=== PATIENT | female | born 1935 | race Caucasian/White ===

== ENCOUNTER 2018-12-03 13:20 | Observation (INO) ==
--- NOTE | 2018-12-03 14:01 | Emergency Department Note ---
Disposition Clinical Impression: Osteomyelitis Qualifiers: Osteomyelitis type: unspecified type Osteomyelitis location: other site Qualified Code(s): M86.9 - Osteomyelitis, unspecified Disposition: Admitted As Inpatient Forms: ED Satisfaction Letter, Work/School Release Time of Disposition: 15:24 General Adult HPI - General Chief complaint: ED General Medical Stated complaint: osteomyelitis Time Seen by Provider: 12/03/18 13:26 Source: patient, family Mode of arrival: ambulatory Limitations: no limitations Nursing Notes Reviewed: Yes Vital Signs Reviewed: Yes - History of Present Illness HPI Narrative: I have re-performed and reviewed the history documented by the medical student, and I confirm its accuracy except as noted below Pt states her osteomyelitis was discovered after she had a tooth removed in April and continued to have left sided jaw pain. She has been taking Clindamycin orally for the past several months which have not been helping with her osteomylitis. She had a jaw XR done at [facility] on but not any advanced imaging. She denies abdominal pain, vomiting and diarrhea from her long course of antibiotics and besides having to puree her food due to the jaew pain she has no other complaints at this time. Pain Scale: 0 - Related Data Allergies Allergy/AdvReac Type Severity Reaction Status Date / Time Penicillins Allergy Hives Verified 12/03/18 13:24 All systems ED: reviewed and negative except as stated. Review of Systems: As Per HPI Constitutional: Denies: fever, chills ENT ED: Reports: other (jaw pain) Cardiovascular: Denies: chest pain, palpitations, dyspnea on exertion Respiratory: Denies: cough, dyspnea, wheezes Gastrointestinal: Denies: abdominal pain, nausea, vomiting, diarrhea Genitourinary: Denies: dysuria, hematuria Musculoskeletal: Denies: back pain, neck pain Neurological: Reports: headache Endocrine: Denies: fatigue Past Medical History - Past Medical History Attestation: Yes The following information was validated with the patient. Source: patient Medical history: Reports: aortic aneurysm, arthritis, cancer, COPD, diabetes, glaucoma, hyperlipidemia Psychiatric history: Reports: anxiety - Social History Smoking Status: Never smoker Smokeless Tobacco Status: No Alcohol use: Reports: none Drug use: Reports: none Physical Exam - General Limitations: no limitations General appearance: alert, in no apparent distress - Head Head exam: atraumatic, normocephalic, other (left sided jaw pain to palpation) - Eye Eye exam: Present: normal appearance, EOMI - Chest Chest inspection: Present: normal inspection. Absent: tenderness, rash - Respiratory Respiratory exam: Present: normal lung sounds bilaterally. Absent: wheezes - Cardiovascular Cardiovascular exam: Present: regular rate, normal rhythm - Abdominal Exam Abdominal exam: Present: soft, Non-Tender. Absent: distention, guarding, kleber ound, rigidity - Extremities Exam Extremities exam: Present: normal inspection. Absent: tenderness, pedal edema, calf tenderness - Neurological Exam Neurological exam: Present: alert, oriented X3 - Psychiatric Psychiatric exam: Present: normal affect, normal mood - Skin Skin exam: Present: warm, dry, intact Course Vital Signs Temperature 98.0 F 12/03/18 13:22 Pulse Rate 75 12/03/18 13:22 Respiratory Rate 18 12/03/18 13:22 Blood Pressure 173/72 12/03/18 13:22 O2 Sat by Pulse Oximetry 97 12/03/18 13:22 Temperature 98.0 F 12/03/18 13:39 Pulse Rate 75 12/03/18 13:39 Respiratory Rate 18 12/03/18 13:39 Blood Pressure 173/72 12/03/18 13:39 O2 Sat by Pulse Oximetry 97 12/03/18 13:39 Oxygen Delivery Oxygen Delivery Room Air Medical Decision Making - MDM Narrative Medical decision making narrative: Patient presents after being called by Allegra Connelly, nurse practitioner for infectious disease, who told her to come to the emergency department to expedite her follow-up with infectious disease. I spoke with Dr. Pinto from infectious disease who recommends obtaining basic labs, blood cultures, ESR, CRP and obtaining CT imaging of the patient's jaw. He recommends starting her on vancomycin and ertapenem to help treat her osteomyelitis and we will likely consult ENT for a second biopsy of the patient's jaw as her records are all in [place]. Disposition will be admission for IV antibiotics and likely PICC line pending patient's lab results. And has no complaints at this time but is requesting a meal and a meal tray will be ordered for her in the emergency depa rtment. 1524 - patient's labs have returned with an elevated ESR and other labs are within normal limits. Patient is pending the CAT scan but she has been accepted by the admitting hospitalist Dr. Phillips for treatment of her osteomyelitis. - Medical Records Medical records reviewed: Yes I reviewed the patient's medical records. - Lab Data Lab results reviewed: Yes I reviewed the patient's lab results. Result diagrams: 12/03/18 14:19 12/03/18 14:19 Lab Results 12/03/18 12/03/18 12/03/18 Range/Units 14:19 14:19 14:19 WBC 4.8 (4.3-11.1) K/mcL RBC 2.89 L (3.82-4.97) M/mcL Hgb 9.5 L (11.5-15.4) g/dL Hct 29.6 L (35.3-44.9) % MCV 102.4 H (83.0-100.0) fL MCH 32.9 (28.0-33.3) pg MCHC 32.1 (31.6-35.5) g/dL RDW 15.3 H (11.5-14.5) % Plt Count 283 (140-400) K/mcL MPV 9.3 L (9.4-12.4) fL Immature Gran % 0.2 (0-4) % Seg Neutrophils % 48.9 % Lymphocytes % 34.2 % Monocytes % 13.8 % Eosinophils % 2.1 % Basophils % 0.8 % Neutrophils # 2.4 (1.6-8.9) K/mcL Lymphocytes # 1.6 (0.6-4.6) K/mcL Monocytes # 0.7 (0.0-1.3) K/mcL Eosinophils # 0.1 (0.0-0.6) K/mcL Basophils # 0.0 (0.0-0.2) K/mcL ESR 41 H (0-15) mm/hr Sodium 136 (136-145) mEq/L Potassium 4.3 (3.5-5.1) mEq/L Chloride 102 (98-107) mEq/L Carbon Dioxide 26 (23-29) mEq/L BUN 21 (8-23) mg/dL Creatinine 0.95 (0.60-1.20) mg/dL Est GFR ( Amer) > 60 (> 60) Est GFR (Non-Af Amer) 56 L (> 60) BUN/Creatinine Ratio 22 (6-26) Glucose 109 H (70-105) mg/dL Calculated Osmolality 286 (280-300) Calcium 9.7 (8.6-10.3) mg/dL C-Reactive Protein < 5 (Less than 10) mg/L - Radiology Data Radiology results reviewed: Yes I reviewed the patient's radiology results.
[2018-12-03] MEDS ORDERED: Isovue-370 500 ML BOTTLE IVP ONE (14:11)
--- NOTE | 2018-12-03 14:18 | Emergency Department Note ---
Disposition Clinical Impression: Osteomyelitis Qualifiers: Osteomyelitis type: unspecified type Osteomyelitis location: other site Qualified Code(s): M86.9 - Osteomyelitis, unspecified Disposition: Admitted As Inpatient Time of Disposition: 16:00 General Adult HPI - General Chief complaint: ED General Medical Stated complaint: osteomyelitis Time Seen by Provider: 12/03/18 13:26 Source: patient, family Mode of arrival: ambulatory Limitations: no limitations Nursing Notes Reviewed: Yes Vital Signs Reviewed: Yes - History of Present Illness HPI Narrative: Mrs. Castellon is a 83yo female with a hx of AAA s/p repair ~2014, DM and COPD that presents with documented osteomyelitis. Patient was originally diagnosed in April with osteomyelitis in [place], where the patient resides for part of the year. Patient started on Clindamycin 150mg at that time which has since been increased to 300mg. Patient went to [facility] on where she had imaging and lab work confirming osteomyelitis, but it was decided that the patient was not a surgical candidate and infectious disease follow-up was recommended. Patient spoke to BAKERY DECORATOR from [facility] who recommended patient come to the ER to expedite the process of being seen. Patient has no specific complaints today and pain is controlled with home oxycodone rx. She denies fever or trouble swallowing. Pain Scale: 0 - Related Data Home Medications Medication Instructions Recorded Confirmed Atorvastatin [Lipitor] 40 mg PO DAILY 12/03/18 12/03/18 Escitalopram [Lexapro] 10 mg PO DAILY 12/03/18 12/03/18 Fluticasone Propionate Nasal 50 mcg NS DAILY PRN 12/03/18 12/03/18 [Flonase] Fluticasone/Umeclidin/Vilanter 1 puff IH DAILY 12/03/18 12/03/18 [Trelegy Ellipta 100-62.5-25] HYDROcodone/Acet 7.5/325 mg [[place] 1 tab PO BID PRN 12/03/18 12/03/18 7.5-325 mg] Losartan Potassium 50 mg PO DAILY 12/03/18 12/03/18 Oxybutynin [Ditropan] 5 mg PO DAILY 12/03/18 12/03/18 Pioglitazone HCl 30 mg PO DAILY 12/03/18 12/03/18 Ranitidine HCl [Acid Resources Representative] 150 mg PO HS 12/03/18 12/03/18 Ropinirole HCl [Requip] 0.5 mg PO BID 12/03/18 12/03/18 Allergies Allergy/AdvReac Type Severity Reaction Status Date / Time Penicillins Allergy Hives Verified 12/03/18 13:24 Constitutional: Denies: fever, chills Cardiovascular: Denies: chest pain, palpitations Respiratory: Denies: cough, dyspnea Gastrointestinal: Denies: abdominal pain, nausea, vomiting, diarrhea Genitourinary: Denies: urgency, dysuria Musculoskeletal: Reports: other (Jaw pain) Neurological: Denies: headache Past Medical History - Past Medical History Medical history: Reports: aortic aneurysm, arthritis, cancer, COPD, diabetes, glaucoma, hyperlipidemia Psychiatric history: Reports: anxiety - Social History Smoking Status: Never smoker Smokeless Tobacco Status: No Alcohol use: Reports: none Drug use: Reports: none Physical Exam - General Limitations: no limitations General appearance: alert, in no apparent distress - Head Head exam: atraumatic, normocephalic - Neck Neck exam: Present: trachea midline. Absent: lymphadenopathy - Respiratory Respiratory exam: Absent: wheezes, stridor - Cardiovascular Cardiovascular exam: Present: regular rate, normal rhythm - Abdominal Exam Abdominal exam: Present: soft, Non-Tender Course Vital Signs Temperature 98.0 F 12/03/18 13:22 Pulse Rate 75 12/03/18 13:22 Respiratory Rate 18 12/03/18 13:22 Blood Pressure 173/72 12/03/18 13:22 O2 Sat by Pulse Oximetry 97 12/03/18 13:22 Temperature 98.0 F 12/03/18 13:39 Pulse Rate 75 12/03/18 13:39 Respiratory Rate 18 12/03/18 13:39 Blood Pressure 173/72 12/03/18 13:39 O2 Sat by Pulse Oximetry 97 12/03/18 13:39 Oxygen Delivery Oxygen Delivery Room Air Medical Decision Making - MDM Narrative Medical decision making narrative: Patient has documented osteomyelitis. Spoke with Dawna ID that recommended CT scan along with basic lab work. Patient will begin course of vancomycin and ertapenem with plans to ID in the near future. - Differential Diagnosis Osteomyelitis - Lab Data Result diagrams: 12/03/18 14:19 12/03/18 14:19 Lab Results 12/03/18 12/03/18 12/03/18 Range/Units 14:19 14:19 14:19 WBC 4.8 (4.3-11.1) K/mcL RBC 2.89 L (3.82-4.97) M/mcL Hgb 9.5 L (11.5-15.4) g/dL Hct 29.6 L (35.3-44.9) % MCV 102.4 H (83.0-100.0) fL MCH 32.9 (28.0-33.3) pg MCHC 32.1 (31.6-35.5) g/dL RDW 15.3 H (11.5-14.5) % Plt Count 283 (140-400) K/mcL MPV 9.3 L (9.4-12.4) fL Immature Gran % 0.2 (0-4) % Seg Neutrophils % 48.9 % Lymphocytes % 34.2 % Monocytes % 13.8 % Eosinophils % 2.1 % Basophils % 0.8 % Neutrophils # 2.4 (1.6-8.9) K/mcL Lymphocytes # 1.6 (0.6-4.6) K/mcL Monocytes # 0.7 (0.0-1.3) K/mcL Eosinophils # 0.1 (0.0-0.6) K/mcL Basophils # 0.0 (0.0-0.2) K/mcL ESR 41 H (0-15) mm/hr Sodium 136 (136-145) mEq/L Potassium 4.3 (3.5-5.1) mEq/L Chloride 102 (98-107) mEq/L Carbon Dioxide 26 (23-29) mEq/L BUN 21 (8-23) mg/dL Creatinine 0.95 (0.60-1.20) mg/dL Est GFR ( Amer) > 60 (> 60) Est GFR (Non-Af Amer) 56 L (> 60) BUN/Creatinine Ratio 22 (6-26) Glucose 109 H (70-105) mg/dL Calculated Osmolality 286 (280-300) Calcium 9.7 (8.6-10.3) mg/dL C-Reactive Protein < 5 (Less than 10) mg/L
--- NOTE | 2018-12-03 14:21 | Emergency Department Note ---
Disposition Clinical Impression: Osteomyelitis Qualifiers: Osteomyelitis type: unspecified type Osteomyelitis location: other site Qualified Code(s): M86.9 - Osteomyelitis, unspecified Disposition: Admitted As Inpatient Time of Disposition: 16:00 General Adult HPI - General Chief complaint: ED General Medical Stated complaint: osteomyelitis Time Seen by Provider: 12/03/18 13:26 Source: patient, family Mode of arrival: ambulatory Limitations: no limitations Nursing Notes Reviewed: Yes Vital Signs Reviewed: Yes - History of Present Illness Pain Scale: 0 - Related Data Home Medications Medication Instructions Recorded Confirmed Atorvastatin [Lipitor] 40 mg PO DAILY 12/03/18 12/03/18 Escitalopram [Lexapro] 10 mg PO DAILY 12/03/18 12/03/18 Fluticasone Propionate Nasal 50 mcg NS DAILY PRN 12/03/18 12/03/18 [Flonase] Fluticasone/Umeclidin/Vilanter 1 puff IH DAILY 12/03/18 12/03/18 [Trelegy Ellipta 100-62.5-25] HYDROcodone/Acet 7.5/325 mg [[place] 1 tab PO BID PRN 12/03/18 12/03/18 7.5-325 mg] Losartan Potassium 50 mg PO DAILY 12/03/18 12/03/18 Oxybutynin [Ditropan] 5 mg PO DAILY 12/03/18 12/03/18 Pioglitazone HCl 30 mg PO DAILY 12/03/18 12/03/18 Ranitidine HCl [Acid Black Studies Professor] 150 mg PO HS 12/03/18 12/03/18 Ropinirole HCl [Requip] 0.5 mg PO BID 12/03/18 12/03/18 Allergies Allergy/AdvReac Type Severity Reaction Status Date / Time Penicillins Allergy Hives Verified 12/03/18 13:24 Past Medical History - Past Medical History Medical history: Reports: aortic aneurysm, arthritis, cancer, COPD, diabetes, glaucoma, hyperlipidemia Psychiatric history: Reports: anxiety - Social History Smoking Status: Never smoker Smokeless Tobacco Status: No Alcohol use: Reports: none Drug use: Reports: none Physical Exam - General Limitations: no limitations General appearance: alert, in no apparent distress Course Vital Signs Temperature 98.0 F 12/03/18 13:22 Pulse Rate 75 12/03/18 13:22 Respiratory Rate 18 12/03/18 13:22 Blood Pressure 173/72 12/03/18 13:22 O2 Sat by Pulse Oximetry 97 12/03/18 13:22 Temperature 98.0 F 12/03/18 13:39 Pulse Rate 75 12/03/18 13:39 Respiratory Rate 18 12/03/18 13:39 Blood Pressure 173/72 12/03/18 13:39 O2 Sat by Pulse Oximetry 97 12/03/18 13:39 Oxygen Delivery Oxygen Delivery Room Air Medical Decision Making - Lab Data Result diagrams: 12/03/18 14:19 12/03/18 14:19 Lab Results 12/03/18 12/03/18 12/03/18 Range/Units 14:19 14:19 14:19 WBC 4.8 (4.3-11.1) K/mcL RBC 2.89 L (3.82-4.97) M/mcL Hgb 9.5 L (11.5-15.4) g/dL Hct 29.6 L (35.3-44.9) % MCV 102.4 H (83.0-100.0) fL MCH 32.9 (28.0-33.3) pg MCHC 32.1 (31.6-35.5) g/dL RDW 15.3 H (11.5-14.5) % Plt Count 283 (140-400) K/mcL MPV 9.3 L (9.4-12.4) fL Immature Gran % 0.2 (0-4) % Seg Neutrophils % 48.9 % Lymphocytes % 34.2 % Monocytes % 13.8 % Eosinophils % 2.1 % Basophils % 0.8 % Neutrophils # 2.4 (1.6-8.9) K/mcL Lymphocytes # 1.6 (0.6-4.6) K/mcL Monocytes # 0.7 (0.0-1.3) K/mcL Eosinophils # 0.1 (0.0-0.6) K/mcL Basophils # 0.0 (0.0-0.2) K/mcL ESR 41 H (0-15) mm/hr Sodium 136 (136-145) mEq/L Potassium 4.3 (3.5-5.1) mEq/L Chloride 102 (98-107) mEq/L Carbon Dioxide 26 (23-29) mEq/L BUN 21 (8-23) mg/dL Creatinine 0.95 (0.60-1.20) mg/dL Est GFR ( Amer) > 60 (> 60) Est GFR (Non-Af Amer) 56 L (> 60) BUN/Creatinine Ratio 22 (6-26) Glucose 109 H (70-105) mg/dL Calculated Osmolality 286 (280-300) Calcium 9.7 (8.6-10.3) mg/dL C-Reactive Protein < 5 (Less than 10) mg/L Attestation Statement - Attestation Attestation: I examined this patient and my medical decision-making was reviewed with the Resident Physician. I agree with the documented findings, disposition and treatment plan as described except to the extent set forth below. Patient presents to the ED with a chief complaint of osteomyelitis to her jaw. Patient has a history of the same. His been on multiple antibiotics since April. [facility] was discussing replacing her jaw. They wanted her to see an infectious disease specialist. She was referred to our infectious disease who recommended her to come to the emergency department to be admitted. On exam she is awake and alert in no distress. Do not appreciate any swelling of her face. Mild tenderness over the left mandible. Plan. Labs imaging and will discuss with infectious disease. Labs reviewed. Patient was given ertapenem and vancomycin. Admitted to [facility]. Face CT 12/03/18 14:11 IMPRESSION: Irregular mixed sclerosis and osteolysis of the bilateral mandibular bodies and crossing the midline consistent with the clinical history of known osteomyelitis. Osteonecrosis could also have this appearance. Irregular 12 x 17 x 13 mm left submandibular soft tissue mass extending from the inferior margin of the left mandibular body to just deep to the skin surface. This is nonspecific and could represent enlarged lymph node however a neoplastic process could also have this appearance. D/ / 12/03/2018 16:14:56 Tony Gutierrez MD / sabrina Interpreting Provider: Tony Gutierrez MD
[2018-12-03 14:45] LABS: Basophils % 0.8 %; Eosinophils # 0.1 K/mcL (0.0-0.6); Eosinophils % 2.1 %; Hematocrit 29.6 % (35.3-44.9); Hemoglobin 9.5 g/dL (11.5-15.4); Immature Granulocytes % 0.2 % (0-4); Lymphocytes # 1.6 K/mcL (0.6-4.6); Lymphocytes % 34.2 %; Mean Corpuscular HGB Conc 32.1 g/dL (31.6-35.5); Mean Corpuscular Hemoglobin 32.9 pg (28.0-33.3); Mean Corpuscular Volume 102.4 fL (83.0-100.0); Mean Platelet Volume 9.3 fL (9.4-12.4); Monocytes # 0.7 K/mcL (0.0-1.3); Monocytes % 13.8 %; Neutrophils # 2.4 K/mcL (1.6-8.9); Platelet Count 283 K/mcL (140-400); Red Blood Count 2.89 M/mcL (3.82-4.97); Red Cell Distribution Width 15.3 % (11.5-14.5); Segmented Neutrophils % 48.9 %; White Blood Count 4.8 K/mcL (4.3-11.1)
[2018-12-03 15:04] LABS: BUN/Creatinine Ratio 22 (6-26); Blood Urea Nitrogen 21 mg/dL (8-23); C-Reactive Protein < 5 mg/L (Less than 10); Calcium 9.7 mg/dL (8.6-10.3); Carbon Dioxide 26 mEq/L (23-29); Chloride 102 mEq/L (98-107); Glucose 109 mg/dL (70-105); Osmolality,Calculated 286 (280-300); Potassium 4.3 mEq/L (3.5-5.1); Sodium 136 mEq/L (136-145); eGFR For African Americans > 60 (> 60); eGFR For Non-African Americans 56 (> 60)
[2018-12-03] MEDS ORDERED: Naloxone 0.4 MG/ML INJ IVP PRN (15:24)
[2018-12-03] MEDS ORDERED: Ondansetron 4 MG/2 ML VIAL IVP PRN (15:24)
[2018-12-03] MEDS ORDERED: *HR* Labetalol 20 MG/4 ML SYRINGE IVP PRN (15:53)
[2018-12-03] MEDS ORDERED: Fluticasone Propionate Nasal 50 MCG/SPRAY BOTTLE NS PRN (15:53)
[2018-12-03] MEDS ORDERED: D5% in Water 1,000 ML IVC PRN (15:54)
[2018-12-03] MEDS ORDERED: Dextrose Gel 15 GM/37.5 ML TUBE PO PRN ×2 (15:54)
[2018-12-03] MEDS ORDERED: *HR* Dextrose 50 % in Water (Syg) 50 ML SYRINGE IVP PRN (15:54)
--- NOTE | 2018-12-03 16:07 | Internal Med History&Physical ---
Date of Encounter: 12/03/18 Time of Encounter: 15:30 Internal Medicine - H&P: HPI Chief complaint: L jaw osteomyelitis Admitted From: Home History of present illness: Ms. Castellon is a 83 year old female with history of COPD, diabetes, status post AAA repair, who presented to the ED for L jaw osteomyelitis. Her history goes back to 09/2017 when she had a tooth pulled out on the left side. Since then, she developed gradual swelling and pain over the left jaw and was diagnosed with L jaw osteomyelitis in 04/2018 in [place]. Since then, she had been on multiple IV/PO abx and also had open exploration of the left mandible in 08/2018. Path at the time confirmed osteomyelitis and she was again placed on PO clindamycin. Since then, she moved up to [place] and was first seen by ENT surgeon in [place] and had a referral to OMF surgeon in [facility] this . She states that [facility] O[facility] surgeon told her that there was no role of any surgical intervention and instead asked her to follow up with infectious disease physician. When she called the ID office on Wednesday, she was told that her earliest appointment was in 3 weeks time hence she decided to come to the ED for further evaluation and treatment. Other than nagging left jaw pain, she denies any fever/chills, nausea/vomiting, chest pain, shows of breath, palpitation, or sputum production. Denies any melena, hematochezia, hematemesis, or hemoptysis. No other GI/ symptoms. In the ED, she was afebrile and hemodynamically stable. Labwork showed hemoglobin of 9.5, ESR 41, and normal CRP. CT facial bones were pending at the time of my interview. Patient will be admitted for further management of left jaw osteomyelitis. Past Med Surg Social Fam HX - Past Medical History Medical history: aortic aneurysm, arthritis, cancer, COPD, diabetes, glaucoma, hyperlipidemia Additional medical history: RLS. Aneurysm L Groin. Heart Cath (June 2018). Breast CA Psychiatric history: anxiety - Past Surgical History Additional surgical history: AAA repair. R Breast Surgery. R Knee Surgery - Social History Smoking Status: Never smoker Smokeless Tobacco Status: No Alcohol use: none Drug use: none - Additional Family History Additional family history: No family history of premature CAD Internal Medicine - H&P: Meds Atorvastatin [Lipitor] 40 mg PO DAILY 12/03/18 [History] Escitalopram [Lexapro] 10 mg PO DAILY 12/03/18 [History] Fluticasone Propionate Nasal [Flonase] 50 mcg NS DAILY PRN 12/03/18 [History] Fluticasone/Umeclidin/Vilanter [Trelegy Ellipta 100-62.5-25] 1 puff IH DAILY 12/03/18 [History] HYDROcodone/Acet 7.5/325 mg [[place] 7.5-325 mg] 1 tab PO BID PRN 12/03/18 [History] Losartan Potassium 50 mg PO DAILY 12/03/18 [History] Oxybutynin [Ditropan] 5 mg PO DAILY 12/03/18 [History] Pioglitazone HCl 30 mg PO DAILY 12/03/18 [History] Ranitidine HCl [Acid Manager [employer]] 150 mg PO HS 12/03/18 [History] Ropinirole HCl [Requip] 0.5 mg PO BID 12/03/18 [History] Allergy/AdvReac Type Severity Reaction Status Date / Time Penicillins Allergy Hives Verified 12/03/18 13:24 All Systems PM: A 10-system review of systems was performed and is negative for pertinent findings except as documented above in the HPI. - Constitutional Vitals: Temp Pulse Resp BP Pulse Ox 98.0 F 75 18 173/72 97 12/03/18 13:39 12/03/18 13:39 12/03/18 13:39 12/03/18 13:39 12/03/18 13:39 Exam: General: Alert and oriented, not in acute distress. HEENT:EOMI, pupils equal, round and reactive. Small knot inferior to the L mandible noted, near submandibular gland. No superficial skin changes. No redness, fluctuance, or discharges. Cardiovascular:Normal S1 & S2, No JVD. Pulse regular. Lungs: clear to auscultation, no wheezes/rales Abdomen:Soft, non-tender, no rigidity. Extremities:No deformity or swelling Neurological:Normal cognition and motor skills. Non-focal Skin:Normal color, no rash, no lesions. Pulses:Carotid and radial pulses normal +2. Rest of the physical exam is non contributory Internal Med - H&P Results - Labs CBC & Chem 7: 09/07/19 14:19 12/03/18 14:19 Labs: Short CBC 12/03/18 Range/Units 14:19 WBC 4.8 (4.3-11.1) K/mcL Hgb 9.5 L (11.5-15.4) g/dL Hct 29.6 L (35.3-44.9) % Plt Count 283 (140-400) K/mcL Neutrophils # 2.4 (1.6-8.9) K/mcL BMP 12/03/18 14:19 Sodium 136 Potassium 4.3 Chloride 102 Carbon Dioxide 26 BUN 21 Creatinine 0.95 Glucose 109 H Calcium 9.7 - Assessment and Plan (1) Osteomyelitis Current Visit: Yes Status: Acute Assessment and plan: Presents with complicated history of left jaw osteomyelitis since 04/2018 following tooth extraction in 09/2017 had open exploration and debridement of L mandible in 08/2018 at the OSH in [place], path confirmed osteomyelitis Patient then had to move to [place] and had been on oral clindamycin since then seen OMF surgeon at [facility] 3 days ago, reported that there is no role for surgical intervention and was referred to the infectious disease specialist IV consulted in the ED, started on IV vancomycin/Invanz per their recommendation. Continue follow up on blood cultures ENT consulted as well obtain old records from [place] Qualifiers: Osteomyelitis type: unspecified type Osteomyelitis location: other site Qualified Code(s): M86.9 - Osteomyelitis, unspecified (2) COPD (chronic obstructive pulmonary disease) Current Visit: Yes Status: Chronic Assessment and plan: Not in exacerbation, resume home inhalers Qualifiers: COPD type: unspecified COPD Qualified Code(s): J44.9 - Chronic obstructive pulmonary disease, unspecified (3) Diabetes Current Visit: Yes Status: Chronic Assessment and plan: hold off on pioglitazone low dose sliding scale ADA diet Qualifiers: Diabetes mellitus type: type 2 Diabetes mellitus long term care administrator insulin use: without long term care administrator use Diabetes mellitus complication status: without complication Qualified Code(s): E11.9 - Type 2 diabetes mellitus without complications (4) HTN (hypertension) Current Visit: Yes Status: Chronic Assessment and plan: Resume home meds, when necessary labetalol Qualifiers: Hypertension type: essential hypertension Qualified Code(s): I10 - Essential (primary) hypertension (5) Restless leg syndrome Current Visit: Yes Status: Chronic Assessment and plan: Resume ropinirole (6) DVT prophylaxis Current Visit: Yes Status: Acute Assessment and plan: Subcutaneous heparin - Time Spent With Patient Total time spent is greater than 50% in coordination of care (as documented) at patient's floor/unit and/or counseling patient: 25 - 35 minutes
[2018-12-03] MEDS: Insulin LISPRO 300 UNITS/3 ML VIAL SQ SCH ×2 (17:20→20:12)
[2018-12-03] MEDS: *HR* Heparin 5,000 UNIT/ML VIAL SQ SCH (18:47)
[2018-12-03] MEDS: *HR* HYDROcodone/Acet 7.5/325 mg TABLET PO PRN (20:28)
[2018-12-03] MEDS: Famotidine 20 MG TABLET PO SCH (20:29)
[2018-12-03] MEDS ORDERED: rOPINIRole 0.25 MG TABLET PO SCH (21:00)
[2018-12-04] MEDS ORDERED: rOPINIRole 0.25 MG TABLET PO ONE (03:25)
[2018-12-04] MEDS ORDERED: rOPINIRole 1 MG TABLET PO ONE (03:26)
[2018-12-04] MEDS: *HR* Heparin 5,000 UNIT/ML VIAL SQ SCH ×2 (06:07→18:30)
[2018-12-04 06:56] LABS: Basophils % 0.7 %; Eosinophils # 0.2 K/mcL (0.0-0.6); Eosinophils % 4.2 %; Hematocrit 31.8 % (35.3-44.9); Hemoglobin 10.2 g/dL (11.5-15.4); Immature Granulocytes % 0.2 % (0-4); Lymphocytes # 2.4 K/mcL (0.6-4.6); Lymphocytes % 43.9 %; Mean Corpuscular HGB Conc 32.1 g/dL (31.6-35.5); Mean Corpuscular Hemoglobin 32.6 pg (28.0-33.3); Mean Corpuscular Volume 101.6 fL (83.0-100.0); Mean Platelet Volume 9.4 fL (9.4-12.4); Monocytes # 0.7 K/mcL (0.0-1.3); Monocytes % 13.5 %; Neutrophils # 2.1 K/mcL (1.6-8.9); Platelet Count 313 K/mcL (140-400); Red Blood Count 3.13 M/mcL (3.82-4.97); Red Cell Distribution Width 15.5 % (11.5-14.5); Segmented Neutrophils % 37.5 %; White Blood Count 5.5 K/mcL (4.3-11.1)
[2018-12-04 07:29] LABS: Thyroid Stimulating Hormone 1.255 mcIU/mL (0.340-5.600)
[2018-12-04 07:38] LABS: BUN/Creatinine Ratio 19 (6-26); Blood Urea Nitrogen 18 mg/dL (8-23); Calcium 10.2 mg/dL (8.6-10.3); Carbon Dioxide 29 mEq/L (23-29); Chloride 103 mEq/L (98-107); Glucose 113 mg/dL (70-105); Magnesium 1.9 mg/dL (1.6-2.6); Osmolality,Calculated 287 (280-300); Potassium 4.2 mEq/L (3.5-5.1); Sodium 137 mEq/L (136-145); eGFR For African Americans > 60 (> 60); eGFR For Non-African Americans 57 (> 60)
[2018-12-04 07:43] LABS: Folate > 22.3 ng/mL (3.0-16.0); Vitamin B12 1433 pg/mL (250-1100)
[2018-12-04] MEDS: Ertapenem 1,000 MG in 0.9 % Sodium Chloride Mini Bag 100 ML IVPB SCH (08:28)
[2018-12-04] MEDS: Famotidine 20 MG TABLET PO SCH (08:29)
[2018-12-04] MEDS: Insulin LISPRO 300 UNITS/3 ML VIAL SQ SCH ×4 (08:30→22:00)
[2018-12-04] MEDS: TRELEGY ELLIPTA IH SCH (08:30)
[2018-12-04] MEDS: *HR* HYDROcodone/Acet 7.5/325 mg TABLET PO PRN (08:33)
--- NOTE | 2018-12-04 09:49 | Internal Med Progress Note ---
Hospitalist Progress Note - Encounter Date of Encounter: 12/04/18 Time of Encounter: 09:48 - Subjective Interval History: I have seen and evaluated the patient at bedside. Patient denies jaw pain or difficulty swallowing. denies chest pain, shortness of breath or abdominal pain. - Exam Vitals: Temp Pulse Resp BP Pulse Ox 98.6 F 71 17 177/67 92 12/04/18 06:23 12/04/18 06:23 12/04/18 06:23 12/04/18 06:23 12/04/18 06:23 Exam: Vitals: Reviewed General: Alert and oriented x4. In no distress Skin: Normal color, no rash, no lesions. HEENT: EOM, pupils equal, round and reactive. Cardiovascular: RRR, normal S1 & S2, no rubs, murmurs or gallops. Lungs: CTA b/l, no wheezes or crackles. Abdomen: Soft, non-tender, no rigidity. Extremities: No deformity, no edema or tenderness, no joint swelling or clubbing. Neurological: Normal cognition and motor skills. Rest of the physical exam is non contributory - Assessment and Plan (1) Osteomyelitis Current Visit: Yes Status: Acute (2) COPD (chronic obstructive pulmonary disease) Current Visit: Yes Status: Chronic (3) Diabetes Current Visit: Yes Status: Chronic (4) Restless leg syndrome Current Visit: Yes Status: Chronic (5) HTN (hypertension) Current Visit: Yes Status: Chronic (6) DVT prophylaxis Current Visit: Yes Status: Acute - Summary of Assessment and Plan Summary of Assessment and Plan: Ms. Castellon is a 83 year old female with history of COPD, diabetes, status post AAA repair, who presented to the ED for L jaw osteomyelitis. Assessment: 1. Osteomyelitis of the left jaw 2. COPD 3. Hyperlipidemia 4. Diabetes 5. Hypertension 6. Restless leg syndrome 7. DVT prophylaxis 8. Coronary artery disease 9. anemia. Plan: - continue broad spectrum IV antibiotics per ID recommendations - on ertapenem and vancomycin - Continue losartan 50 mg by mouth daily for blood pressure control. - On aspirin 81 mg by mouth daily. Atorvastatin 40 mg by mouth at bedtime. - Blood sugars were controlled on pioglitazone and lispro. will continue to monitor - heparin subq for dvt prophylaxis Disposition: - patient to remain in the hospital on broad spectrum IV antibiotics. - Time Spent with Patient Total time spent is greater than 50% in coordination of care (as documented) at patient's floor/unit and/or counseling patient: Greater than 35 minutes (40) Plan of Care Discussed with: patient (and the nurse.) Internal Medicine: Result - Labs CBC & Chem 7: 12/04/18 06:33 12/04/18 06:59 Labs: Short CBC 12/03/18 12/04/18 Range/Units 14:19 06:33 WBC 4.8 5.5 (4.3-11.1) K/mcL Hgb 9.5 L 10.2 L (11.5-15.4) g/dL Hct 29.6 L 31.8 L (35.3-44.9) % Plt Count 283 313 (140-400) K/mcL Neutrophils # 2.4 2.1 (1.6-8.9) K/mcL BMP 12/03/18 12/04/18 14:19 06:59 Sodium 136 137 Potassium 4.3 4.2 Chloride 102 103 Carbon Dioxide 26 29 BUN 21 18 Creatinine 0.95 0.94 Glucose 109 H 113 H Calcium 9.7 10.2 - ABG Interpretation ABG results: PT/INR, D-dimer PT 11.0 Seconds (9.4-12.1) 12/04/18 06:33 - Impressions Impressions Face CT 12/03/18 14:11 IMPRESSION: Irregular mixed sclerosis and osteolysis of the bilateral mandibular bodies and crossing the midline consistent with the clinical history of known osteomyelitis. Osteonecrosis could also have this appearance. Irregular 12 x 17 x 13 mm left submandibular soft tissue mass extending from the inferior margin of the left mandibular body to just deep to the skin surface. This is nonspecific and could represent enlarged lymph node however a neoplastic process could also have this appearance. D/ / 12/03/2018 16:14:56 Tony Gutierrez MD / sabrina Interpreting Provider: Tony Gutierrez MD Consult Discharge Plan - Plan Referrals: Debbie Gavin DO [Primary Care Provider] - (1) Osteomyelitis Qualifiers: Osteomyelitis type: unspecified type Osteomyelitis location: other site Qualified Code(s): M86.9 - Osteomyelitis, unspecified (2) COPD (chronic obstructive pulmonary disease) Qualifiers: COPD type: unspecified COPD Qualified Code(s): J44.9 - Chronic obstructive pulmonary disease, unspecified (3) Diabetes Qualifiers: Diabetes mellitus type: type 2 Diabetes mellitus terminal superintendent insulin use: without senior care use Diabetes mellitus complication status: without complication Qualified Code(s): E11.9 - Type 2 diabetes mellitus without complications (5) HTN (hypertension) Qualifiers: Hypertension type: essential hypertension Qualified Code(s): I10 - Essential (primary) hypertension
[2018-12-04] MEDS: valACYclovir 500 MG TABLET PO SCH (09:51)
[2018-12-04] MEDS: Aspirin 81 MG TAB.CHEW PO SCH (09:51)
[2018-12-04] MEDS: *HR* Pioglitazone 30 MG TABLET PO SCH (09:54)
[2018-12-04] MEDS: rOPINIRole 1 MG TABLET PO SCH (18:30)
[2018-12-04] MEDS: *HR* HYDROcodone/Acet 5/325 mg TABLET PO PRN (20:12)
[2018-12-04] MEDS ORDERED: rOPINIRole 1 MG TABLET PO SCH (21:00)
[2018-12-05] MEDS: *HR* HYDROcodone/Acet 5/325 mg TABLET PO PRN ×3 (02:04→21:16)
[2018-12-05] MEDS: *HR* Heparin 5,000 UNIT/ML VIAL SQ SCH ×2 (05:18→17:43)
[2018-12-05] MEDS: rOPINIRole 1 MG TABLET PO SCH ×2 (07:31→19:10)
[2018-12-05] MEDS: Insulin LISPRO 300 UNITS/3 ML VIAL SQ SCH ×4 (07:54→21:18)
[2018-12-05] MEDS: *HR* Pioglitazone 30 MG TABLET PO SCH (08:02)
[2018-12-05] MEDS: Aspirin 81 MG TAB.CHEW PO SCH (08:15)
[2018-12-05] MEDS: Ertapenem 1,000 MG in 0.9 % Sodium Chloride Mini Bag 100 ML IVPB SCH (08:16)
[2018-12-05] MEDS: valACYclovir 500 MG TABLET PO SCH (08:17)
[2018-12-05] MEDS: TRELEGY ELLIPTA IH SCH (08:18)
--- NOTE | 2018-12-05 09:35 | Discharge Summary ---
Orders not resulted at time of discharge: Pending orders 12/03/18 14:19 Culture,Blood [BC] Stat Date of Encounter: 12/06/18 Time of Encounter: 09:31 - Discharge Diagnosis (1) Osteomyelitis Priority: Primary Status: Acute Assessment and Plan: Left Jaw Qualifiers: Osteomyelitis type: unspecified type Osteomyelitis location: other site Qualified Code(s): M86.9 - Osteomyelitis, unspecified (2) COPD (chronic obstructive pulmonary disease) Priority: Secondary Status: Chronic Qualifiers: COPD type: unspecified COPD Qualified Code(s): J44.9 - Chronic obstructive pulmonary disease, unspecified (3) Diabetes Priority: Secondary Status: Chronic Qualifiers: Diabetes mellitus type: type 2 Diabetes mellitus usp insulin use: without usp use Diabetes mellitus complication status: without complication Qualified Code(s): E11.9 - Type 2 diabetes mellitus without complications (4) Restless leg syndrome Priority: Secondary Status: Chronic (5) HTN (hypertension) Priority: Secondary Status: Chronic Qualifiers: Hypertension type: essential hypertension Qualified Code(s): I10 - Essential (primary) hypertension (6) DVT prophylaxis Priority: Secondary Status: Chronic Hospital course: Ms. Castellon is a 83 year old female history of COPD, diabetes, status post AAA repair, who presented to the ED for L jaw osteomyelitis. ENT surgeon in [place] and had a referral to OMF surgeon in [facility] this . She states that [facility] surgeon told her that there was no role of any surgical intervention and instead asked her to follow up with infectious disease physician. Patient presented to the ED to be admitted as waiting for an outpatient ID appointment would take longer than 3 weeks. Patient was admitted to the hospital due to left jaw osteomyelitis. Patient started on broad spectrum IV antibiotics and ID was consulted. ID evaluated the patient and recommended: augmentin 500mg/PO Q12HR and doxycycline 100mg/PO BID, and close follow up with image studies. ENT consulted, I talked to the ENT macaroni maker on 12/05/18 and per ENT they did not feel comfortable on doing a biopsy of the jaw due to how CT f indings. Patient refused surgery/biopsy at [facility]. Patient is clinically stable to be discharged on antibiotics per ID recommendations. - Time Spent with Patient Total time spent providing and/or coordinating discharge services: Time spent: Greater than 30 minutes (35) - Discharge Medications Prescriptions: New Amoxicillin/Clavulanate [Augmentin] 500 mg PO BIDWM 28 Days #56 tablet Doxycycline 100 mg PO BID 28 Days #56 capsule Lactobacillus Acidophilus [Acidophilus] 1 each PO BID 28 Days #56 tablet Continued Atorvastatin [Lipitor] 40 mg PO DAILY Escitalopram [Lexapro] 10 mg PO DAILY Fluticasone Propionate Nasal [Flonase] 50 mcg NS DAILY PRN PRN Reason: Allergy Symptoms Fluticasone/Umeclidin/Vilanter [Trelegy Ellipta 100-62.5-25] 1 puff IH DAILY HYDROcodone/Acet 7.5/325 mg [[place] 7.5-325 mg] 1 tab PO BID PRN PRN Reason: Pain Losartan Potassium 50 mg PO DAILY Oxybutynin [Ditropan] 5 mg PO DAILY Pioglitazone HCl 30 mg PO DAILY Ranitidine HCl [Acid Grass Farmer] 150 mg PO HS Ropinirole HCl [Requip] 0.5 mg PO BID Home Medications: Atorvastatin [Lipitor] 40 mg PO DAILY 12/03/18 [History] Escitalopram [Lexapro] 10 mg PO DAILY 12/03/18 [History] Fluticasone Propionate Nasal [Flonase] 50 mcg NS DAILY PRN 12/03/18 [History] Fluticasone/Umeclidin/Vilanter [Trelegy Ellipta 100-62.5-25] 1 puff IH DAILY 12/03/18 [History] HYDROcodone/Acet 7.5/325 mg [[place] 7.5-325 mg] 1 tab PO BID PRN 12/03/18 [Histo ry] Losartan Potassium 50 mg PO DAILY 12/03/18 [History] Oxybutynin [Ditropan] 5 mg PO DAILY 12/03/18 [History] Pioglitazone HCl 30 mg PO DAILY 12/03/18 [History] Ranitidine HCl [Acid Grass Farmer] 150 mg PO HS 12/03/18 [History] Ropinirole HCl [Requip] 0.5 mg PO BID 12/03/18 [History] Amoxicillin/Clavulanate [Augmentin] 500 mg PO BIDWM 28 Days #56 tablet 12/06/18 [Rx] Doxycycline 100 mg PO BID 28 Days #56 capsule 12/06/18 [Rx] Lactobacillus Acidophilus [Acidophilus] 1 each PO BID 28 Days #56 tablet 12/06/18 [Rx] Allergies/Adverse Reactions: Allergy/AdvReac Type Severity Reaction Status Date / Time Penicillins Allergy Hives Verified 12/03/18 13:24 Date of admission: 12/03/18 15:39 Primary care physician: Debbie Gavin DO Consults: 12/03/18 14:05 Consult to ENT [CONS] Stat Consulting Provider: [facility] [place] Reason for Consult: osteomyelitis of left jaw needs biopsy Call Completed: No Consult to Infectious Diseases [CONS] Stat Consulting Provider: [facility] [place] Reason for Consult: osteomyelitis Call Completed: Yes - Constitutional Vitals: Temp Pulse Resp BP Pulse Ox 98.6 F 75 17 172/74 94 12/05/18 08:00 12/05/18 08:00 12/05/18 08:00 12/05/18 08:00 12/05/18 08:00 Exam: Vitals: Reviewed General: Alert and oriented x4. In no distress Cardiovascular: RRR, normal S1 & S2, no rubs, murmurs or gallops. Lungs: CTA b/l, no wheezes or crackles. Abdomen: Soft, non-tender, no rigidity. NABS in all 4 quadrants. Extremities: No edema. Neurological: No focal neurological abnormalities. Rest of the physical exam is non contributory - Patient Status Disposition: Home, Self-Care Condition: Good Functional capacity at discharge: independent ambulation Overall status at discharge: patient is back to baseline - Discharge Instructions Follow Up With: Debbie Gavin DO [Primary Care Provider] - 12/14/18 10:00 am - Diet and Activity Activity: resume usual activities as tolerated
--- NOTE | 2018-12-05 11:36 | Infectious Disease Consult ---
Infectious Disease-Consult - Encounter Date/Time Date of Encounter: 12/05/18 Time of Encounter: 11:31 - Data of Consult Patient: new to practice Reason for consult: Osteomyelitis Consult date: 12/05/18 Requesting Physician: Chandler Rizzo MD Primary Care Provider: Debbie Gavin DO - HPI HPI: Patient is a 83-year-old woman who was referred to our outpatient clinic for osteomyelitis of the jaw from [facility]. Patient was instructed to go to the emergency department because we were and MB unable to see her in a timely fashion and we did not think that she should wait 3-4 weeks to get into our office. Patient is an 84-year-old woman with past medical history mentioned below tells me that back in September 2017 she had a very infection and had that tooth extracted on the left lower jaw patient states that she was doing fine until about April 2018 which started having pain and swelling in the left lower jaw. Patient was seen by an ENT doctor and was started empirically on clindamycin. Patient was then seen by an oral surgeon Dr. Ayo Hanson @ [phone] and underwent an oral surgery on 09/19/2018. Patient apparently had a positive pathology report for osteomyelitis. Cultures were positive only for normal oral filipe. Patient tells me she did not receive any further antibiotics. Patient came from [place] to [place] and while here she started having pain in her jaw and she was having a hard time eating. Patient was evaluated by an oral surgeon at [facility] and they recommended reconstruction surgery and putting him at all jaw. Patient refused since he does not want any surgical intervention and they recommended infectious disease to see her family. Patient was referred to us in clinic but we were overbooked and we recommended patient goes to the ED to avoid having to wait over months to see us. Since arrival to the ED, patient was having jaw pain that was bilateral. I did receive a phone call from the ER physician and I put on the initial orders. Since admission patient has been afebrile, no tachycardia and no tachypnea. Presenting labs revealed a WBC of 4.8 with normal differential. BUN of 21 creatinine 0.95. Blood cultures were obtained and are no growth to date. She will CT was read as "irregular mixed sclerosis and osteolysis of the bilateral mandibular bodies and crossing the midline consistent with the clinical history of known osteomyelitis. Osteonecrosis could also have this appearance. Irregular [id number] mm left submandibular soft tissue mass extending from the inferior margin of the left mandibular body to the skin surface. This is nonspecific and could represent a large lymph node however a neoplastic process could also have this appearance. Patient was started on an Vancomycin and ertapenem were asked to evaluate the patient make further recommendations. - ROS Review of Systems: 10 point review of systems done, negative other for what mentioned in the history of present illness - Results CBC & Chem 7: 12/04/18 06:33 12/04/18 06:59 - Exam Vitals: Temp Pulse Resp BP Pulse Ox 98.6 F 75 17 172/74 94 12/05/18 08:00 12/05/18 08:00 12/05/18 08:00 12/05/18 08:00 12/05/18 08:00 Exam: GENERAL: Laying in bed, appears comfortable. HEAD: Normocephalic atraumatic EYES: PERRLA, EOMI, no conjunctival hemorrhage, sclera anicteric ENT: Mucous membranes moist, no oral thrush NECK: Supple. No meningeal signs. No masses LUNGS: Chest expanding symmetrically. Lungs sounds audible both lung [place]. No wheezing, no rhonchi CV: RRR, S1S2, ABDOMEN: Soft, nontender, nondistended. Bowel sounds audible BACK: No CVA tenderness. Normal inspection. No tenderness over the spine EXTREMITY: Adequate perfusion. No joint effusion. SKIN: Normal color. No rash. NEURO: Awake alert oriented 3. No obvious focal deficit PSYCH: Calm and appropriate. No agitation. Atorvastatin [Lipitor] 40 mg PO DAILY 12/03/18 [History] Escitalopram [Lexapro] 10 mg PO DAILY 12/03/18 [History] Fluticasone Propionate Nasal [Flonase] 50 mcg NS DAILY PRN 12/03/18 [History] Fluticasone/Umeclidin/Vilanter [Trelegy Ellipta 100-62.5-25] 1 puff IH DAILY 12/03/18 [History] HYDROcodone/Acet 7.5/325 mg [[place] 7.5-325 mg] 1 tab PO BID PRN 12/03/18 [History] Losartan Potassium 50 mg PO DAILY 12/03/18 [History] Oxybutynin [Ditropan] 5 mg PO DAILY 12/03/18 [History] Pioglitazone HCl 30 mg PO DAILY 12/03/18 [History] Ranitidine HCl [Acid Teacher Aide Clerical] 150 mg PO HS 12/03/18 [History] Ropinirole HCl [Requip] 0.5 mg PO BID 12/03/18 [History] Allergy/AdvReac Type Severity Reaction Status Date / Time Penicillins Allergy Hives Verified 12/03/18 13:24 - Assessment and Plan (1) Osteomyelitis Current Visit: Yes Status: Acute Osteomyelitis bilateral mandibular bodies on CT facial 12/03 causative organism unknown s/p surgical debridement of the mandibular osteomyelitis 09/19/2018 in [place]. At that time: osteo was limited to the left part of the mandible and cultures showed only normal oral filipe Patient was evaluated last week by oral surgery at [facility] and they reocmmended surgery but she refused. currently patient is on vancomycin and ertapenem continue vancomycin switch patient to rocephin 2 grams daily goal vanc trough around 10 d/w ENT. they feel that most of the mandible has been destroyed and they are very concerned to performing a biopsy to obtain cultures. I did discuss with patient and family at [facility] oral vs IV antibiotics and duration of treatment. We will discuss with them some more in the am I was initially leaning towards oral option but then after d/w ENT and knowing the extend of the destruction of the mandible, we might have to recommend IV antibiotics because the benefit of abx outweighs the risk of IV antibiotics treatment Qualifiers: Osteomyelitis type: unspecified type Osteomyelitis location: other site Qualified Code(s): M86.9 - Osteomyelitis, unspecified SNOMED Code(s): 37694757 (2) COPD (chronic obstructive pulmonary disease) Current Visit: Yes Status: Chronic Qualifiers: COPD type: unspecified COPD Qualified Code(s): J44.9 - Chronic obstructive pulmonary disease, unspecified SNOMED Code(s): 95951349 (3) Diabetes Current Visit: Yes Status: Chronic Qualifiers: Diabetes mellitus type: type 2 Diabetes mellitus longterm insulin use: without longterm use Diabetes mellitus complication status: without complication Qualified Code(s): E11.9 - Type 2 diabetes mellitus without complications SNOMED Code(s): 16697735 (4) Restless leg syndrome Current Visit: Yes Status: Chronic SNOMED Code(s): 72175970 (5) HTN (hypertension) Current Visit: Yes Status: Chronic Qualifiers: Hypertension type: essential hypertension Qualified Code(s): I10 - Essential (primary) hypertension SNOMED Code(s): 12523534 (6) Penicillin allergy Current Visit: Yes Status: Acute had a rash 65 years ago. recommend allergy testing because i'd like to use pcn based antibiotics. SNOMED Code(s): 56879453 - Recommendations Recommendations: TIME spent with patient, family and coordinating care with other subspecialists 2 hours Past Med Surg Social Fam HX - Past Medical History Medical history: aortic aneurysm, arthritis, cancer, COPD, diabetes, glaucoma, hyperlipidemia Additional medical history: RLS. Aneurysm L Groin. Heart Cath (June 2018). Breast CA Psychiatric history: anxiety - Past Surgical History Additional surgical history: AAA repair. R Breast Surgery. R Knee Surgery - Social History Smoking Status: Never smoker Smokeless Tobacco Status: No Alcohol use: none Drug use: none Consult Discharge Plan - Plan Referrals: Debbie Gavin DO [Primary Care Provider] - 12/14/18 10:00 am
[2018-12-05] MEDS: Famotidine 20 MG TABLET PO SCH (21:15)
[2018-12-06 03:29] LABS: Calcium 10.1 mg/dL (8.6-10.3); Potassium 4.4 mEq/L (3.5-5.1)
[2018-12-06] MEDS: *HR* Heparin 5,000 UNIT/ML VIAL SQ SCH (06:23)
[2018-12-06] MEDS: rOPINIRole 1 MG TABLET PO SCH (06:31)
[2018-12-06] MEDS ORDERED: Ringers Solution, Lactated 1,000 ML IVC SCH (07:30)
[2018-12-06] MEDS ORDERED: EPINEPHrine 1 MG/ML VIAL IV PRN (08:02)
[2018-12-06] MEDS ORDERED: Amoxicillin 500 MG CAPSULE PO ONE (08:15)
[2018-12-06] MEDS ORDERED: EPINEPHrine 1 MG/ML VIAL IM PRN (08:15)
[2018-12-06] MEDS ORDERED: Famotidine 20 MG/2 ML VIAL IVP PRN (08:15)
[2018-12-06] MEDS ORDERED: methylPREDNISolone 125 MG/2 ML VIAL IVP PRN (08:15)
[2018-12-06] MEDS ORDERED: 0.9 % Sodium Chloride 10 ML PF VIAL TP ONE (08:15)
[2018-12-06] MEDS ORDERED: Penicillin test 1000 units/0.1 ml ID ONE (08:15)
[2018-12-06] MEDS ORDERED: Amoxicillin Susp 250 MG/5 ML UDC PO ONE (08:15)
[2018-12-06] MEDS ORDERED: Penicillin test 1000 units/0.1 ml TP ONE (08:15)
[2018-12-06] MEDS: TRELEGY ELLIPTA IH SCH (09:43)
[2018-12-06] MEDS: Insulin LISPRO 300 UNITS/3 ML VIAL SQ SCH ×2 (10:58→14:10)
[2018-12-06 11:27] VITALS: BP 160/78
--- NOTE | 2018-12-06 14:57 | Internal Med Progress Note ---
Hospitalist Progress Note - Encounter Date of Encounter: 12/06/18 Time of Encounter: 14:52 - Subjective Interval History: I have seen and evaluated the patient at bedside. patient reported feeling well, denies chest pain, report mild jaw discomfort. denies abdominal pain, nausea or vomiting. - Exam Vitals: Temp Pulse Resp BP Pulse Ox 98.3 F 81 14 160/78 97 12/06/18 11:19 12/06/18 11:19 12/06/18 11:19 12/06/18 11:19 12/06/18 11:19 Exam: Vitals: Reviewed General: Alert and oriented x4. In no distress Cardiovascular: RRR, normal S1 & S2, no rubs, murmurs or gallops. Lungs: CTA b/l, no wheezes or crackles. Abdomen: Soft, non-tender, no rigidity. Extremities: No edema. Neurological: No focal neurological abnormalities. Rest of the physical exam is non contributory - Assessment and Plan (1) Osteomyelitis Current Visit: Yes Status: Acute (2) COPD (chronic obstructive pulmonary disease) Current Visit: Yes Status: Chronic (3) Diabetes Current Visit: Yes Status: Chronic (4) Restless leg syndrome Current Visit: Yes Status: Chronic (5) HTN (hypertension) Current Visit: Yes Status: Chronic (6) DVT prophylaxis Current Visit: Yes Status: Chronic (7) JAQUELIN (acute kidney injury) Current Visit: Yes Status: Acute - Summary of Assessment and Plan Summary of Assessment and Plan: Ms. Castellon is a 83 year old female with history of COPD, diabetes, status post AAA repair, who presented to the ED for L jaw osteomyelitis. Assessment: 1. Osteomyelitis of the left jaw 2. COPD 3. Hyperlipidemia 4. Diabetes 5. Hypertension 6. Restless leg syndrome 7. DVT prophylaxis 8. Coronary artery disease 9. anemia. 10. JAQUELIN Plan: s/p penicillin allergy testing done prior to dc. Patient stated she does not want any surgical intervention on the jaw, because when she discussed the surgery with the Doctor at [facility] they recommended against it. - dc ertapenem and vancomycin. discussed with ID will dc patient on augmentin and doxycycline. - BP well controlled on losartan 50 mg by mouth daily - c/w aspirin 81 mg by mouth daily. Atorvastatin 40 mg by mouth at bedtime. - will resume pioglitazone, home dose. Patient does not want to be on insulin. - continue PPIs - On heparin subq for dvt prophylaxis - started on gentle IV hydration. will repeat bmp tomorrow morning. Disposition: - patient clinically stable to be discharged home on oral antibiotics. - Time Spent with Patient Total time spent is greater than 50% in coordination of care (as documented) at patient's floor/unit and/or counseling patient: Greater than 35 minutes (40) Plan of Care Discussed with: patient Internal Medicine: Result - Labs CBC & Chem 7: 12/04/18 06:33 12/06/18 02:31 Labs: BMP 12/06/18 02:31 Sodium 138 Potassium 4.4 Chloride 104 Carbon Dioxide 28 BUN 21 Creatinine 1.22 H Glucose 134 H Calcium 10.1 - ABG Interpretation ABG results: PT/INR, D-dimer PT 11.0 Seconds (9.4-12.1) 12/04/18 06:33 Consult Discharge Plan - Plan Referrals: Debbie Gavin DO [Primary Care Provider] - 12/14/18 10:00 am Prescriptions: Lactobacillus Acidophilus [Acidophilus] 1 each PO BID 28 Days #56 tablet Amoxicillin/Clavulanate [Augmentin] 500 mg PO BIDWM 28 Days #56 tablet Doxycycline 100 mg PO BID 28 Days #56 capsule (1) Osteomyelitis Qualifiers: Osteomyelitis type: unspecified type Osteomyelitis location: other site Qualified Code(s): M86.9 - Osteomyelitis, unspecified (2) COPD (chronic obstructive pulmonary disease) Qualifiers: COPD type: unspecified COPD Qualified Code(s): J44.9 - Chronic obstructive pulmonary disease, unspecified (3) Diabetes Qualifiers: Diabetes mellitus type: type 2 Diabetes mellitus long term care phlebotomist insulin use: without long term care phlebotomist use Diabetes mellitus complication status: without complication Qualified Code(s): E11.9 - Type 2 diabetes mellitus without complications (5) HTN (hypertension) Qualifiers: Hypertension type: essential hypertension Qualified Code(s): I10 - Essential (primary) hypertension
[2018-12-06] MEDS ORDERED: Aminoglycoside Consult 1 EACH MC ONE (16:46)
--- NOTE | 2018-12-06 17:27 | Infectious Disease Progress No ---
ID Progress Note Date of Encounter: 12/06/18 Time of Encounter: 17:20 - Subjective Subjective: Patient seen and examined. Clinically doing well. Denies any headache no chest pain or shortness of breath no nausea no vomiting no diarrhea no urinary symptoms. Denies any significant pain in her jaw. Vital signs noted Labs reviewed - Objective CBC & Chem 7: 12/04/18 06:33 12/06/18 02:31 - Exam Vitals: Temp Pulse Resp BP Pulse Ox 98.3 F 81 14 160/78 97 12/06/18 11:19 12/06/18 11:19 12/06/18 11:19 12/06/18 11:19 12/06/18 11:19 Exam: GENERAL: Comfortable. Laying in bed NAD HEENT: PEDRO, EOMI LUNGS: Good air sounds bilaterally, no wheezing or rhonchi CV: RRR, S1 S2 ABDOMEN: Soft, nontender, + bowel sounds EXT: Adequate perfusion. 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 At that time: osteo was limited to the left part of the mandible and cultures showed only normal oral filipe Patient was evaluated last week by oral surgery at [facility] and they reocmmended surgery but she refused. currently patient is on vancomycin and ertapenem continue vancomycin switch patient to rocephin 2 grams daily goal vanc trough around 10 d/w ENT. they feel that most of the mandible has been destroyed and they are very concerned to performing a biopsy to obtain cultures. Qualifiers: Osteomyelitis type: unspecified type Osteomyelitis location: other site Qualified Code(s): M86.9 - Osteomyelitis, unspecified SNOMED Code(s): 56277094 (2) COPD (chronic obstructive pulmonary disease) Status: Chronic Qualifiers: COPD type: unspecified COPD Qualified Code(s): J44.9 - Chronic obstructive pulmonary disease, unspecified SNOMED Code(s): 62711351 (3) Diabetes Status: Chronic Qualifiers: Diabetes mellitus type: type 2 Diabetes mellitus retirement insulin use: without stave inspector use Diabetes mellitus complication status: without complication Qualified Code(s): E11.9 - Type 2 diabetes mellitus without complications SNOMED Code(s): 89220811 (4) Restless leg syndrome Status: Chronic SNOMED Code(s): 23548534 (5) HTN (hypertension) Status: Chronic Qualifiers: Hypertension type: essential hypertension Qualified Code(s): I10 - Essential (primary) hypertension SNOMED Code(s): 19866082 (6) Penicillin allergy Status: Acute had a rash 65 years ago. Allergy testing negative for penicillin SNOMED Code(s): 71628046 - Recommendations Recommendations: We had again a long discussion with the patient and the daughter in the presence of Dr. Miner. We gave the patient the option of IV antibiotics probably worsening his vancomycin plus Rocephin and we gave her the option of oral Augmentin plus doxycycline. We talked about the pros and cons of both options. Patient wants to go on oral antibiotics. She keeps stating that her has Alzheimer's and she has to go home to take care of him and she wants to try orals first. I think it is reasonable approach. We will check weekly labs on her including CBC, BUN, creatinine, ESR and CRP. Her creatinine clearance is 20. We discussed with Mira the pharmacist. We will do Augmentin 500 mg every 12 hours on doxycycline 100 mg twice a day. Patient needs to follow-up with me in clinic in 2 weeks. Consult Discharge Plan - Plan Instructions: Osteomyelitis (DC), Osteomyelitis (GEN) Referrals: Debbie Gavin DO [Primary Care Provider] - 12/14/18 10:00 am Jordan Pinto MD [Partnered Physician] - (Web request entered. Office will call with date and time of appointment.) Prescriptions: Lactobacillus Acidophilus [Acidophilus] 1 each PO BID 28 Days #56 tablet Amoxicillin/Clavulanate [Augmentin] 500 mg PO BIDWM 28 Days #56 tablet Doxycycline 100 mg PO BID 28 Days #56 capsule
[2018-12-07] MEDS ORDERED: *HR* Pioglitazone 30 MG TABLET PO SCH (08:00)
--- NOTE | 2018-12-07 13:09 | Allergy Consult Note ---
Date of Encounter: 12/06/18 Time of Encounter: 07:00 Assessment and Plan (1) Adverse effect of penicillins, initial encounter Status: Acute Patient is a good candidate for penicillin testing, especially in light of her severe infection. Penicillin testing was discussed in detail. I explained we will first do skin pricks on the forearm with controls and different types of penicillin. If this is negative then we will do intradermals, which are a more sensitive skin test on the upper arms with the different penicillins. If that is negative then we will proceed to a graded oral challenge with amoxicillin. Patient will be given a 10% dose of amoxicillin and observed for 15 minutes. Then I will give a full dose of amoxicillin and observe them for 60 minutes. I explained that the risk of reaction with skin test and oral challenge are low but could include hives, rash, difficulty breathing, closure of airway, drop in blood pressure, and . All questions were answered. Qualifiers: Encounter type: initial encounter Qualified Code(s): T36.0X5A - Adverse effect of penicillins, initial encounter (2) History of penicillin allergy Status: Acute Patient tolerated her penicillin test today and she was negative. History of Present Illness Consult date: 12/06/18 Reason for consult: Drug allergy Requesting physician: Chandler Rizzo History of present illness: Patient had a knee surgery 65 years ago and was given penicillin. After she went home she had hives on the leg which was operated on. She doesn't remember if she had any difficulty breathing, vomiting, or diarrhea. Patient has COPD and is dong well at this time. SHe is currently admitted for a severe infection of her jaw. SHe denies any other drug allergies. Past Med Surg Social Fam HX - Past Medical History Medical history: aortic aneurysm, arthritis, cancer, COPD, diabetes, glaucoma, hyperlipidemia Additional medical history: RLS. Aneurysm L Groin. Heart Cath (June 2018). Breast CA Psychiatric history: anxiety - Past Surgical History Additional surgical history: AAA repair. R Breast Surgery. R Knee Surgery - Social History Smoking Status: Never smoker Smokeless Tobacco Status: No Alcohol use: none Drug use: none - Additional Family History Additional family history: no family history of allergies. Medications and Allergies Atorvastatin [Lipitor] 40 mg PO DAILY 12/03/18 [History] Escitalopram [Lexapro] 10 mg PO DAILY 12/03/18 [History] Fluticasone Propionate Nasal [Flonase] 50 mcg NS DAILY PRN 12/03/18 [History] Fluticasone/Umeclidin/Vilanter [Trelegy Ellipta 100-62.5-25] 1 puff IH DAILY 12/03/18 [History] HYDROcodone/Acet 7.5/325 mg [[place] 7.5-325 mg] 1 tab PO BID PRN 12/03/18 [History] Losartan Potassium 50 mg PO DAILY 12/03/18 [History] Oxybutynin [Ditropan] 5 mg PO DAILY 12/03/18 [History] Pioglitazone HCl 30 mg PO DAILY 12/03/18 [History] Ranitidine HCl [Acid Statistical Engineer] 150 mg PO HS 12/03/18 [History] Ropinirole HCl [Requip] 0.5 mg PO BID 12/03/18 [History] Amoxicillin/Clavulanate [Augmentin] 500 mg PO BIDWM 28 Days #56 tablet 12/06/18 [Rx] Doxycycline 100 mg PO BID 28 Days #56 capsule 12/06/18 [Rx] Lactobacillus Acidophilus [Acidophilus] 1 each PO BID 28 Days #56 tablet 12/06/18 [Rx] Allergy/AdvReac Type Severity Reaction Status Date / Time Penicillins Allergy Hives Verified 12/03/18 13:24 ROS Allergy - Constitutional Constitutional ROS: no fever(s), no headache(s) - EENT Nose, mouth and throat: no dizziness, no throat swelling, no tongue swelling - Cardiovascular Cardiovascular ROS IM: no chest pain - Respiratory no cough, no wheezing - Gastrointestinal Gastrointestinal: no diarrhea, no nausea - Genitourinary Genitourinary ROS: no dysuria - Musculoskeletal Musculoskeletal ROS: no abnormal gait, no muscle weakness - Integumentary Integumentary: no rash - Neurological Neurological ROS: headache(s), no dizziness - Psychiatric Psychiatric general: no anxiety - Allergic/Immunologic no tongue swelling, no throat swelling, no uticaria Allergy Exam Initial Vital Signs Temp Pulse Resp BP Pulse Ox 98.0 F 75 18 173/72 97 12/03/18 13:22 12/03/18 13:22 12/03/18 13:22 12/03/18 13:22 12/03/18 13:22 - General physical appearance well developed, well nourished, no distress - Eyes PERRL, normal ocular movement - ENT normal nares, normal mucosa, no congestion - Neck trachea midline, no lymphadectomy - Respiratory normal respiratory effort, clear to auscultation - Abdomen Abdomen: soft, non tender - Integumentary no rash - Neurologic normal coordination - Musculoskeletal normal gait - Psychiatric oriented to time, oriented to person, oriented to place - Additional Findings heart-RRR Results - Labs 12/04/18 06:33 12/06/18 02:31 Abnormal lab results RBC 3.13 M/mcL (3.82-4.97) L 12/04/18 06:33 Hgb 10.2 g/dL (11.5-15.4) L 12/04/18 06:33 Hct 31.8 % (35.3-44.9) L 12/04/18 06:33 MCV 101.6 fL (83.0-100.0) H 12/04/18 06:33 RDW 15.5 % (11.5-14.5) H 12/04/18 06:33 MPV 9.3 fL (9.4-12.4) L 12/03/18 14:19 ESR 41 mm/hr (0-15) H 12/03/18 14:19 Creatinine 1.22 mg/dL (0.60-1.20) H 12/06/18 02:31 Est GFR ( Amer) 51 (> 60) L 12/06/18 02:31 Est GFR (Non-Af Amer) 42 (> 60) L 12/06/18 02:31 Glucose 134 mg/dL (70-105) H 12/06/18 02:31 POC Glucose 109 mg/dL (70-99) H 12/06/18 11:19 Vitamin B12 1433 pg/mL (250-1100) H 12/04/18 06:33 Folate > 22.3 ng/mL (3.0-16.0) H 12/04/18 06:33 Vancomycin Trough 11 mcg/mL (5-10) H 12/06/18 15:06 All other labs normal. Consult Discharge Plan - Plan Instructions: Osteomyelitis (DC), Osteomyelitis (GEN) Referrals: Debbie Gavin DO [Primary Care Provider] - 12/14/18 10:00 am Jordan Pinto MD [Partnered Physician] - (Web request entered. Office will call with date and time of appointment.) Prescriptions: Lactobacillus Acidophilus [Acidophilus] 1 each PO BID 28 Days #56 tablet Amoxicillin/Clavulanate [Augmentin] 500 mg PO BIDWM 28 Days #56 tablet Doxycycline 100 mg PO BID 28 Days #56 capsule
--- NOTE | 2018-12-07 13:23 | Allergy Procedure Note ---
Date of procedure: 12/06/18 Pre-op diagnosis: Adverse effect to pencillin Post-op diagnosis: other (Patient is not allergic to penicillin) Procedure: Written consent signed. Histamine 5x8mm wheal and flare Saline 0x0mm Pre pen 0x0 Pre Pen 2 -0x0 pen G-0x0 Pen G2-0x0 Intradermal: Read after 15 minutes Prepen 4x4mm Prepen 2-4x4mm Pen G-4x4mm Pen G 2-4x4mm 50mg oral amoxicillin given and observed x 15 minutes with no change in exam or history 500mg oral amoxicillin given and observed x 60 minutes with no change in exam or history. Patient is not allergic to Penicillin. Was there an casting assistant present: No Condition: stable
== END 2018-12-06 16:47 | disposition home or self-care (01) ==
LOC: EMEROOARM 13:20 → 3ANU 13:20 → SUATTDRO 15:39 → 3ANU 16:20
PROVIDERS: ADMIT Internal Medicine; ATTEND Internal Medicine